=== PATIENT | male | born 1950 | race Hispanic/Latino ===

== ENCOUNTER 2018-09-03 08:02 | Observation (INO) | payer OTHER ==
--- NOTE | 2018-09-01 14:15 | NUR ---
Spoke with Veronica Perez RN at physician's office regarding holding aspirin 325mg po and vytorin 10-40mg po. Veronica Perez RN stated to hold aspirin 325mg po on morning of procedure, and ok to continue vytorin 10-40 mg po at bedtime.
[2018-09-01 14:47] LABS: BASOPHILS % 0.3 % (0.0-1.0); EOSINOPHILS # (AUTO) 0.1 (0.0-0.4); EOSINOPHILS % 0.9 % (0.0-6.0); HEMATOCRIT 40.8 % (38.2-49.6); HEMOGLOBIN 13.5 g/dL (14.0-18.0); LYMPHOCYTES # (AUTO) 1.9 (1.0-3.2); LYMPHOCYTES % 28.7 % (18.0-39.1); MEAN CORPUSCULAR HGB CONC 33.1 g/dL (31-35); MEAN CORPUSCULAR VOLUME 93.8 fL (81-99); MONOCYTES # (AUTO) 0.4 (0.2-0.8); NEUTROPHILS # (AUTO) 4.1 (2.1-6.9); NEUTROPHILS % 63.8 % (38.7-80.0); PLATELET COUNT 189 x10e3/uL (140-360); RED BLOOD COUNT 4.35 x10e6/uL (4.3-5.7); RED CELL DISTRIBUTION WIDTH 12.7 % (11.7-14.4)
[2018-09-01 14:58] LABS: INR 0.94; PROTHROMBIN TIME 13.1 seconds (11.9-14.5)
[2018-09-01 15:05] LABS: ALANINE AMINOTRANSFERASE 30 IU/L (0-55); ALBUMIN 4.2 g/dL (3.5-5.0); ALBUMIN/GLOBULIN RATIO 1.5 (0.8-2.0); ALKALINE PHOSPHATASE 70 IU/L (40-150); ANION GAP 11.5 mmol/L (8-16); BLOOD UREA NITROGEN 17 mg/dL (7-26); BUN/CREATININE RATIO 16 (6-25); CALCIUM 9.8 mg/dL (8.4-10.2); CARBON DIOXIDE 28 mmol/L (22-29); CHLORIDE 104 mmol/L (98-107); CREATININE, SERUM 1.05 mg/dL (0.72-1.25); EST GLOMERULAR FILTRATION RATE > 60 ML/MIN (60-); GLUCOSE 90 mg/dL (74-118); POTASSIUM 4.5 mmol/L (3.5-5.1); SODIUM 139 mmol/L (136-145)
--- NOTE | 2018-09-01 15:18 | Diagnostic Imaging Report ---
EXAMINATION: PA and lateral views of the chest. COMPARISON: None CLINICAL HISTORY: Preoperative study for cardiac catheterization DISCUSSION: Lines/tubes: None. Lungs: The lungs are well inflated and clear. There is no evidence of pneumonia or pulmonary edema. Pleura: There is no pleural effusion or pneumothorax. Heart and mediastinum: Median sternotomy wires and mediastinal surgical clips. Normal heart size without overt pulmonary edema. Bones and soft tissues: No acute bony abnormalities. Degenerative changes in the thoracic spine IMPRESSION: No acute cardiopulmonary abnormalities. Signed by: Dr. Hernandez Augustin M.D. on 09/01/2018 3:15 PM
[2018-09-03] VITALS (16 sets, daily range): BP systolic 106–138; BP diastolic 53–74
[~2018-09-03] VITALS: Ht 175.3 cm; Wt 63.5 kg
[~2018-09-03 08:02] MED LIST: ASPIRIN325 MG PO; CLOPIDOGREL75 MG PO; ISOSORBIDE MONO30 MG PO; METOPROLOL TART50 MG PO; NAMENDA10 MG PO; VYTORIN 10-401 EACH PO
--- OUTSIDE RECORDS SUMMARY | 2018-09-03 08:08 | XMS REPORT ---
Author Author [facility] Address Unknown Phone Unavailable Care Team Providers Care Hand Candle Dipper Name Role Phone HERNANDEZ CARMONA Unavailable Unavailable Problems This patient has no known problems. Allergies, Adverse Reactions, Alerts This patient has no known allergies or adverse reactions. Medications This patient has no known medications. Results Test Description Test Time Test Comments Text Results Atomic Results Result Comments CHEST 2 VIEWS 2018-09-01 15:13:00 [place] [address] Patient Name: PURNIMA DE JESUS MR #: [id number] : 1950 Age/Sex: 68/M Req #: [id number] Adm Physician: Ordered by: HERNANDEZ CARMONA MD Report #: [id number] Location: [facility] Room/Bed: Procedure: [id number] DX/CHEST 2 VIEWS Exam Date: 09/01/18 Exam Time: 1445 REPORT STATUS: Signed EXAMINATION: PA and lateral views of the chest. COMPARISON: None CLINICAL HISTORY: Preoperative study for cardiac catheterization DISCUSSION: Lines/tubes: None. Lungs: The lungs are well inflated and clear. There is no evidence of pneumonia or pulmonary edema. Pleura: There is no pleural effusion or pneumothorax. Heart and mediastinum: Median sternotomy wires and mediastinal surgical clips. Normal heart size without overt pulmonary edema. Bones and soft tissues: No acute bony abnormalities. Degenerative changes in the thoracic spine IMPRESSION: No acute cardiopulmonary abnormalities. Signed by: Dr. Hernandez Means M.D. on 09/01/2018 3:15 PM Dictated By: HERNANDEZ MEANS MD 1515 Transcribed By: DUSTIN on 09/01/18 1510 COPY TO: HERNANDEZ CARMONA MD
[2018-09-03] MEDS ORDERED: LIDOCAINE HCL 2% LOCAL 20 ML VIAL ONE (09:44)
[2018-09-03] MEDS ORDERED: FENTANYL CITRATE/PF 100MCG/2 ML INJ ONE (09:44)
[2018-09-03] MEDS ORDERED: MIDAZOLAM HCL 2 MG/2 ML VIAL ONE (09:44)
[2018-09-03] MEDS ORDERED: HEPARIN SOD/SOD CHLORIDE 2,000 ML ONE (09:44)
[2018-09-03] MEDS ORDERED: SODIUM CHLORIDE 0.9% 1000ML 1,000 ML ONE (09:45)
[2018-09-03] MEDS ORDERED: IOPAMIDOL 370 MG/ML 200 ML INFUS..BTL INJ ONE ×2 (09:45→10:35)
[2018-09-03] MEDS ORDERED: BIVALRIUDIN 250 MG/VIAL VIAL IV ONE (10:32)
[2018-09-03] MEDS ORDERED: SODIUM CHLORIDE 0.9% 50ML 50 ML ONE ×2 (10:32→10:44)
[2018-09-03] MEDS ORDERED: VERAPAMIL HCL 2.5 MG/ML 2 ML VIAL ONE (10:43)
[2018-09-03] MEDS ORDERED: SODIUM CHLORIDE 0.9% 500ML 0 ML ONE (10:47)
[2018-09-03] MEDS ORDERED: ADENOSINE 6MG/2ML 0 ML ONE (10:47)
--- NOTE | 2018-09-03 11:10 | NUR ---
Continuity of care to recovery post procedure. Review of findings and medications given. Patient drowsy, easily aroused. maintains airway and room air saturations of 98-100%. No gross issues of pressure, pain, or pallor. Continues to be in second degree type 2, zolls monitoring active and atropine at bedside. IV site patent with NS 0.9% at 100ml/hr per gravity. patient hemodynamically stable with hemostasis.. right groin dressing CDI w/o s/s of bleeding. [facility]o [facility]. transported to [facility] holding - f procedure: RCA graph PCI stent Sheath puller: Punmary PATIENT FINANCIAL COORDINATOR Meds Given Intra-Procedure Sedatives Versed - 2 mg Fentanyl - 50 mcg Anticoagulants Angiomax intra procedure Fluids Input - 500ml Output - DTV Contrast Isovue 370 -120ml Other Meds Plavix 600mg Aspirin 325
[2018-09-03] MEDS ORDERED: ATROPINE SULFATE 0.1 MG/ML 10ML SYR ONE (11:14)
[2018-09-03] MEDS: SODIUM CHLORIDE 0.9% 1000ML 1,000 ML IV SCH ×2 (11:22→21:22)
--- NOTE | 2018-09-03 12:35 | Operative Report ---
DATE OF PROCEDURE: SURGEON: Hernandez Gimenez MD PROCEDURES: 1. Stent placement in the saphenous vein graft to the right coronary artery. 2. Left heart catheterization with graft. INDICATIONS: 1. Angina. 2. Coronary artery disease. TECHNIQUE: The right groin was draped and prepped in the usual fashion. The area was anesthetized with lidocaine. Standard Seldinger technique was used to place a 6-Serbian sheath into the right femoral artery without difficulty. A JL4 catheter was used to selectively engage the left coronary artery. A 3DRC catheter was used to selectively engage the right coronary artery and the saphenous vein graft to the right coronary artery. An internal mammary artery catheter was used to selectively engage the left internal mammary artery graft to the left anterior descending artery. A pigtail catheter was used to perform a left ventriculogram. Attention was then turned to the 70% stenosis in the saphenous vein graft to the right coronary artery. The patient was bolused with Angiomax and started on an Angiomax drip. The patient was given 600 mg of Plavix and RCB guiding catheter was used to selectively engage the saphenous vein graft to the right coronary artery. A ChoICE PT wire was used to cross the area of 70% stenosis. A 3.5 mm x 16 mm stent was then deployed directly at 16 atmospheres for 30 seconds. After deploying the stent, the patient had some flow and was given 200 mcg of intracoronary verapamil through the catheter and then 300 mcg of intracoronary verapamil through and over the wire balloon. The patient had some transient heart block after receiving the IV verapamil and was given 0.5 mg of atropine. After administering the verapamil, the patient had a brisk flow through the vein graft. A Mynx device was used for closure. RESULTS: 1. There is a normal left main trunk. 2. There is a large left anterior descending artery, which was 100% occluded proximally. 3. There was a medium-sized AV circumflex artery, which gave rise to a large bifurcating obtuse marginal branch. There was about 90% stenosis in the proximal AV circumflex artery and about 90% stenosis in the obtuse marginal branch of the circumflex artery. 4. The large dominant right coronary artery was completely occluded in its origin. 5. The left internal mammary artery graft to the left anterior descending artery was widely patent. 6. The saphenous vein graft to the right coronary artery had a 70% hazy distal stenosis. 7. There was normal left ventricular size and function with an ejection fraction of 60%. CONCLUSION: Successful stent placement in the saphenous vein graft to the right coronary artery. MD JASMYN Griffin/MODL /[id number] cc: Montana Lay III, MD
--- NOTE | 2018-09-03 14:00 | NUR ---
Pt meets transfer criteria. right groin assessed for s/s of complication and presence of hematoma. general skin appearance warm, dry, no discolor, and pulses present. IV patent to left forearm. VS WNL w/ 1o HB. Pt denies pain, sob, or need at this time. Has tolerated PO w/o duress. Family at bedside. Review of POC instructions. verbalized understanding. Pt transferred to [facility] on portable monitor. - cgf
[2018-09-03] MEDS ORDERED: METOPROLOL TARTRATE 25 MG TAB PO SCH (17:00)
[2018-09-03] MEDS ORDERED: LIPITOR20 MG PO (17:52)
[2018-09-03] MEDS ORDERED: ARICEPT5 MG PO (17:53)
--- NOTE | 2018-09-03 20:32 | NUR ---
PATIENT RESTING IN BED WATCHING TV, SON AT THE BEDSIDE. NO DISTRESS NOTED. CALL LIGHT IN REACH. DRESSING REMAIN INTACT. WILL CONTINUE TO MONITOR.
[2018-09-04] VITALS: BP 117/61
[2018-09-04 05:13] LABS: BASOPHILS % 0.4 % (0.0-1.0); EOSINOPHILS # (AUTO) 0.2 (0.0-0.4); EOSINOPHILS % 2.6 % (0.0-6.0); HEMATOCRIT 34.6 % (38.2-49.6); HEMOGLOBIN 11.2 g/dL (14.0-18.0); LYMPHOCYTES # (AUTO) 1.6 (1.0-3.2); LYMPHOCYTES % 28.4 % (18.0-39.1); MEAN CORPUSCULAR HEMOGLOBIN 31.1 pg (28-32); MEAN CORPUSCULAR HGB CONC 32.4 g/dL (31-35); MEAN CORPUSCULAR VOLUME 96.1 fL (81-99); MONOCYTES # (AUTO) 0.3 (0.2-0.8); MONOCYTES % 5.8 % (4.4-11.3); NEUTROPHILS # (AUTO) 3.6 (2.1-6.9); NEUTROPHILS % 62.6 % (38.7-80.0); PLATELET COUNT 150 x10e3/uL (140-360); RED CELL DISTRIBUTION WIDTH 12.7 % (11.7-14.4)
[2018-09-04 05:19] VITALS: BP 119/57
[2018-09-04 05:21] VITALS: BP 119/57
[2018-09-04 05:44] LABS: ALANINE AMINOTRANSFERASE 24 IU/L (0-55); ALBUMIN 3.2 g/dL (3.5-5.0); ALBUMIN/GLOBULIN RATIO 1.4 (0.8-2.0); ALKALINE PHOSPHATASE 59 IU/L (40-150); ANION GAP 9.1 mmol/L (8-16); BLOOD UREA NITROGEN 12 mg/dL (7-26); BUN/CREATININE RATIO 14 (6-25); CALCIUM 8.5 mg/dL (8.4-10.2); CARBON DIOXIDE 26 mmol/L (22-29); CHLORIDE 107 mmol/L (98-107); CHOL/HDL RATIO 2.5 (3.9-4.7); CHOLESTEROL 125 MD/DL (0-199); CREATININE, SERUM 0.84 mg/dL (0.72-1.25); EST GLOMERULAR FILTRATION RATE > 60 ML/MIN (60-); GLUCOSE 81 mg/dL (74-118); HDL CHOLESTEROL 51 MG/DL (40-60); LDL CHOLESTEROL 57 MG/DL (60-130); POTASSIUM 4.1 mmol/L (3.5-5.1); SODIUM 138 mmol/L (136-145); TRIGLYCERIDES 84 MG/DL (0-149)
--- NOTE | 2018-09-04 06:55 | NUR ---
PATIENT CONTINUE RESTING, DRESSING TO HIS RIGHT GROIN REMAIN INTACT, PULSES WEAK BUT PALPABLE. WILL CONTINUE TO MONITOR. CALL LIGHT REMAIN IN REACH. FAMILY REMAIN AT THE BEDSIDE.
--- NOTE | 2018-09-04 07:11 | NUR ---
rounds done, report given to am nurse, patient continue resting, no distress noted.
[2018-09-04] MEDS: SODIUM CHLORIDE 0.9% 1000ML 1,000 ML IV SCH (07:14)
[2018-09-04 07:30] VITALS: BP 110/58
[2018-09-04] MEDS ORDERED: ISOSORBIDE MONONITRATE 30 MG TAB CR PO SCH (09:00)
[2018-09-04] MEDS ORDERED: CLOPIDOGREL BISULFATE 75 MG TAB PO SCH (09:00)
[2018-09-04] MEDS ORDERED: MEMANTINE 10 MG TAB PO SCH (09:00)
[2018-09-04] MEDS ORDERED: ATORVASTATIN 20 MG TAB PO SCH (21:00)
[2018-09-04] MEDS ORDERED: DONEPEZIL HCL 5 MG TAB PO SCH (21:00)
== END 2018-09-04 09:25 | disposition home or self-care (01) ==
LOC: CATH LAB 08:02 → EDBD 10:00 → INTOOBSV 11:00 → CATH LAB V 11:00 → IMCU 14:39
PROVIDERS: ADMIT Internal Medicine Cardiovascular Disease; ATTEND Internal Medicine Cardiovascular Disease
DX: I25.810 Atherosclerosis of coronary artery bypass graft(s) without angina pectoris (principal); R07.9 Chest pain, unspecified; Z01.810 Encounter for preprocedural cardiovascular examination; Z01.812 Encounter for preprocedural laboratory examination; Z01.811 Encounter for preprocedural respiratory examination; R09.89 Other specified symptoms and signs involving the circulatory and respiratory systems; Z95.1 Presence of aortocoronary bypass graft; I10 Essential (primary) hypertension; I25.2 Old myocardial infarction; E78.5 Hyperlipidemia, unspecified
CPT/HCPCS: 36415 ×2; 71046; 80053 ×2; 80061; 85025 ×2; 85610; 92937; 93005 ×2; 93459; C1725; C1760; C1769; C1874; G0378 ×2; J0583; J2001; J2250; J7030 ×2; Q9967; J0153; J7040

== ENCOUNTER 2018-09-17 08:26 | Observation (INO) | payer OTHER ==
[2018-09-14 11:58] LABS: BASOPHILS % 0.3 % (0.0-1.0); EOSINOPHILS # (AUTO) 0.1 (0.0-0.4); EOSINOPHILS % 1.3 % (0.0-6.0); HEMATOCRIT 39.9 % (38.2-49.6); HEMOGLOBIN 13.1 g/dL (14.0-18.0); LYMPHOCYTES # (AUTO) 1.8 (1.0-3.2); LYMPHOCYTES % 25.3 % (18.0-39.1); MEAN CORPUSCULAR HEMOGLOBIN 30.8 pg (28-32); MEAN CORPUSCULAR HGB CONC 32.8 g/dL (31-35); MEAN CORPUSCULAR VOLUME 93.7 fL (81-99); MONOCYTES # (AUTO) 0.4 (0.2-0.8); MONOCYTES % 5.3 % (4.4-11.3); NEUTROPHILS # (AUTO) 4.9 (2.1-6.9); NEUTROPHILS % 67.5 % (38.7-80.0); PLATELET COUNT 195 x10e3/uL (140-360); RED BLOOD COUNT 4.26 x10e6/uL (4.3-5.7); RED CELL DISTRIBUTION WIDTH 12.6 % (11.7-14.4)
[2018-09-14 12:06] LABS: INR 0.96; PROTHROMBIN TIME 13.3 seconds (11.9-14.5)
[2018-09-14 12:07] LABS: PARTIAL THROMBOPLASTIN TIME 34.3 seconds (23.8-35.5)
[2018-09-14 12:16] LABS: ALANINE AMINOTRANSFERASE 49 IU/L (0-55); ALBUMIN 4.3 g/dL (3.5-5.0); ALBUMIN/GLOBULIN RATIO 1.6 (0.8-2.0); ALKALINE PHOSPHATASE 79 IU/L (40-150); ANION GAP 11.9 mmol/L (8-16); BLOOD UREA NITROGEN 22 mg/dL (7-26); BUN/CREATININE RATIO 20 (6-25); CARBON DIOXIDE 28 mmol/L (22-29); CHLORIDE 101 mmol/L (98-107); EST GLOMERULAR FILTRATION RATE > 60 ML/MIN (60-); GLUCOSE 85 mg/dL (74-118); POTASSIUM 4.9 mmol/L (3.5-5.1); SODIUM 136 mmol/L (136-145)
[~2018-09-17] VITALS: Ht 177.8 cm; Wt 63.5 kg
[2018-09-17] VITALS (17 sets, daily range): BP systolic 90–138; BP diastolic 50–75
[~2018-09-17 08:26] MED LIST changes: +ARICEPT5 MG PO; +LIPITOR20 MG PO
--- OUTSIDE RECORDS SUMMARY | 2018-09-17 08:28 | XMS REPORT ---
Author Author [facility] Address Unknown Phone Unavailable Care Team Providers Care Floor Waxer Name Role Phone HERNANDEZ CARMONA Unavailable Unavailable Problems This patient has no known problems. Allergies, Adverse Reactions, Alerts This patient has no known allergies or adverse reactions. Medications This patient has no known medications. Results Test Description Test Time Test Comments Text Results Atomic Results Result Comments CHEST 2 VIEWS 2018-09-01 15:13:00 [place] [address] Patient Name: PURNIMA DE JESUS MR #: [id number] : 1950 Age/Sex: 68/M Req #: [id number] Adm Physician: Ordered by: HERNANDEZ CARMONA MD Report #: [id number] Location: [facility] FILLER Room/Bed: Procedure: [id number] DX/CHEST 2 VIEWS Exam Date: 09/01/18 Exam [...] MD 1515 Transcribed By: DUSTIN on 09/01/18 1513 COPY TO: HERNANDEZ CARMONA MD
[2018-09-17] MEDS ORDERED: MIDAZOLAM HCL 2 MG/2 ML VIAL ONE (08:46)
[2018-09-17] MEDS ORDERED: SODIUM CHLORIDE 0.9% 1000ML 1,000 ML ONE (08:47)
[2018-09-17] MEDS ORDERED: LIDOCAINE HCL 2% LOCAL 20 ML VIAL ONE (08:47)
[2018-09-17] MEDS ORDERED: IOPAMIDOL 370 MG/ML 200 ML INFUS..BTL INJ ONE (08:47)
[2018-09-17] MEDS ORDERED: FENTANYL CITRATE/PF 100MCG/2 ML INJ ONE (08:47)
[2018-09-17] MEDS ORDERED: HEPARIN SOD/SOD CHLORIDE 2,000 ML ONE (08:47)
--- NOTE | 2018-09-17 10:46 | NUR ---
1046am Received pt to Rm #[address] [facility] [address] Gimenez. Tele obsv, bed ordered per MD request. Back to baseline orientation Ox4. Resp shallow and regular. 100%Ra. Abdomen soft and non tender denies necessity to defecate or urinate.Bilateral femoral PPx4 PT/DP. Iv infusing well w/o s/s infiltration. Offered po intake Tolerating juice well. ds/rn
--- NOTE | 2018-09-17 11:00 | NUR ---
1100am requested clarification for bed assignment 103 tele observation only No gross issues pain pallor pressure or dysrhythmia. ds/rn
--- NOTE | 2018-09-17 11:37 | Operative Report ---
DATE OF PROCEDURE: 09/17/2018 SURGEON: Hernandez Gimenez MD PROCEDURE: Intracoronary stent placement in the AV circumflex artery. INDICATION: 1. Angina. 2. Coronary artery disease. TECHNIQUE: This patient's right groin was draped and prepped in the usual fashion. The area was anesthetized with lidocaine. Standard Seldinger technique was used to place a 6-Serbian sheath into the right femoral artery without difficulty. The patient's diagnostic catheterization had been done previously and the patient was known to have 70%, 90%, and 80% stenosis in the AV circumflex artery. An XB 3.5 guiding catheter was used to selectively engage the left coronary artery. A ChoICE PT wire was used to cross the area of stenosis. The areas were pre-dilated with a 2.5 mm x 12 mm balloon. A 2.5 mm x 20 mm Synergy stent was then deployed in the distal 70% stenosis at 16 atmospheres for 30 seconds. A 3.0 mm x 16 mm stent was then deployed in the 90% mid stenosis at 16 atmospheres for 30 seconds. A 12.0 x 3.0 stent was then deployed in the proximal 80% stenosis at 16 atmospheres for 30 seconds. The proximal stent was post dilated with a 3.0 x 6 noncompliant balloon. A Mynx device was used for closure. There were no complications. CONCLUSION: Successful stent placement in the AV circumflex artery. Hernandez Gimenez MD DSH/MODL /[id number]
--- NOTE | 2018-09-17 12:00 | NUR ---
[address] Gimenez office regarding clarification of transfer order. Remains with no gross issue pain pallor pressure or dysrhythmia. rt Mynx dressing dry and intact.
--- NOTE | 2018-09-17 13:24 | NUR ---
5109 Received tel Obsv. status ok'd Dr Gimenez office by Willie MITCHELL .Rm assignment 107 stable rt groin site No gross issues pain pallor pressure or dysrhythmia. Iv site w/o s/s infiltration Tele box in place. awaiting report to floor status. dana/maria fernanda
--- NOTE | 2018-09-17 13:30 | NUR ---
1330pm Back to baseline orientation voided 200cc and states passed gas b/p 57/37 re-cked manual both arms 58/40,56/8 Bolused 100ns recovery bp 110/70 Called report to Ja Dahl warned of potential vagal response. Pt remains Ox4 Respiration shallow and regular 100%RA,Rt groin site w/o hematoma,dressing remain dry and intact. PPx4 PT/DP.No iv ordered to continue to continue saline lock remains intact.Transfered per stretcher to [facility] and face to face report completed with shelly RN. Report given to tele room remains sinus sukh. No gross issues of pain pallor pressure or dysrhythmia. ds/rn
--- NOTE | 2018-09-17 13:55 | NUR ---
RECEIVED PATIENT FROM CLINICAL INFORMATION SYSTEMS DIRECTOR. PATIENT A/O X3, EVEN RESPIRATIONS ON RA. BOWEL SOUNDS ACTIVE, NO EDEMA. LUNG SOUNDS CLEAR TO AUSCULTATION. RIGHT GROIN DRESSING C/D/I, NO HEMATOMA. RIGHT FA 20 GAUGE IV SL INTACT/PATENT. TELEMETRY #15 SB @ 53. PATIENT AMBULATORY WITH STANDBY ASSIST. CALL LIGHT IN REACH. SON AT BEDSIDE. BED LOW, WHEELS LOCKED, SIDE RAILS X2. WILL CONTINUE TO MONITOR PATIENT.
--- NOTE | 2018-09-17 17:55 | NUR ---
ASSISTED PATIENT TO BATHROOM. PATIENT VOIDED. ASSISTED PATIENT BACK TO BED. CALL LIGHT IN REACH WILL CONTINUE TO MONITOR PATIENT.
--- NOTE | 2018-09-17 21:51 | NUR ---
PT RESTING IN BED WITH NO S/S OF DISTRESS.RESPIRATIONS EVEN/NON LABORED.PT S/P HEART CATH,RIGHT GROIN SITE C/D/I.NO S/S OF HEMATOMA.DENIES ANY PAIN.PEDAL PULSES PALPABLE BILATERALLY.INSTRUCTED PT TO CALL FOR ASSISTANCE NEEDED BY USING CALL LIGHT.PT VERBALIZED UNDERSTANDING.CALL LIGHT WITHIN EASY REACH.
[2018-09-18 00:41] VITALS: BP 118/68
[2018-09-18 04:28] VITALS: BP 103/60
[2018-09-18 06:09] LABS: BASOPHILS % 0.2 % (0.0-1.0); EOSINOPHILS % 0.5 % (0.0-6.0); HEMATOCRIT 27.4 % (38.2-49.6); LYMPHOCYTES # (AUTO) 2.1 (1.0-3.2); LYMPHOCYTES % 25.6 % (18.0-39.1); MEAN CORPUSCULAR HEMOGLOBIN 31.9 pg (28-32); MEAN CORPUSCULAR HGB CONC 33.2 g/dL (31-35); MEAN CORPUSCULAR VOLUME 96.1 fL (81-99); MONOCYTES # (AUTO) 0.6 (0.2-0.8); MONOCYTES % 7.3 % (4.4-11.3); NEUTROPHILS # (AUTO) 5.3 (2.1-6.9); PLATELET COUNT 148 x10e3/uL (140-360); RED BLOOD COUNT 2.85 x10e6/uL (4.3-5.7); RED CELL DISTRIBUTION WIDTH 12.7 % (11.7-14.4)
[2018-09-18 06:22] LABS: ANION GAP 11.2 mmol/L (8-16); BLOOD UREA NITROGEN 24 mg/dL (7-26); BUN/CREATININE RATIO 26 (6-25); CALCIUM 8.9 mg/dL (8.4-10.2); CARBON DIOXIDE 27 mmol/L (22-29); CHLORIDE 108 mmol/L (98-107); CREATININE, SERUM 0.94 mg/dL (0.72-1.25); EST GLOMERULAR FILTRATION RATE > 60 ML/MIN (60-); GLUCOSE 81 mg/dL (74-118); POTASSIUM 4.2 mmol/L (3.5-5.1); SODIUM 142 mmol/L (136-145)
[2018-09-18 06:29] LABS: HEMOGLOBIN 9.1 g/dL (14.0-18.0)
--- NOTE | 2018-09-18 07:10 | NUR ---
REPORT GIVEN TO ONCOMING NURSE,WALKING ROUNDS MADE.PT RESTING IN BED WITH NO S/S OF DISTRESS.
--- NOTE | 2018-09-18 07:15 | NUR ---
PT RESTING IN BED AA0X3. PT DENIES PAIN PT IS S/P HEART CATH WITH STENT PLACEMENT 09/17 RIGHT GROIN SITE HAS DRESSING THAT IS DRY AND INTACT NO HEMATOMA NOTED, AREA IS SOFT. BILATERAL PEDAL PULSES PRESENT RIGHT FA IV IS PATENT DRY AND INTACT WILL CONTINUE TO MONITOR PT CLOSELY SIDE RAILSX2, BED WHEELS LOCKED, CALL LIGHT IS WITHIN EASY REACH, INSTRUCTED TO CALL FOR ASSISTANCE IF NEEDED
[2018-09-18 08:20] VITALS: BP 101/64
[2018-09-18 08:21] VITALS: BP 101/66
--- NOTE | 2018-09-18 08:41 | NUR ---
DC INSTRUCTIONS AND PRESCRIPTIONS GIVEN. PT VERBALIZED UNDERSTANDING. IV DC PRESSURE DRESSING APPLIED AND TAPED PT IS READY FOR DC AT THIS TIME WAITING FOR RIDE HOME
[2018-09-18] MEDS ORDERED: CLOPIDOGREL BISULFATE 75 MG TAB PO SCH (09:00)
--- NOTE | 2018-09-18 10:25 | NUR ---
PT OFF UNIT TO HOME VIA WHEEL CHAIR
== END 2018-09-18 10:24 | disposition home or self-care (01) ==
LOC: CATH LAB 08:26 → CATH LAB V 10:40 → MED/SURG 13:57
PROVIDERS: ADMIT Internal Medicine Cardiovascular Disease; ATTEND Internal Medicine Cardiovascular Disease
DX: I25.110 Atherosclerotic heart disease of native coronary artery with unstable angina pectoris (principal); Z95.1 Presence of aortocoronary bypass graft; E11.9 Type 2 diabetes mellitus without complications; I10 Essential (primary) hypertension; I25.2 Old myocardial infarction
CPT/HCPCS: 36415 ×2; 80048; 80053; 85025 ×2; 85610; 85730; 92928; 93005; C1725 ×3; C1760; C1769; C1874 ×3; C1887; G0378 ×2; J2001; J2250; J7030; Q9967; J3010